=== PATIENT | female | born 1985 ===

== ENCOUNTER 2016-12-18 13:31 | Emergency (ER) | payer OTHER ==
[2016-12-18] MEDS ORDERED: Lidocaine 2% w Epi 1:100,000 Inj IJ ONE (13:56)
[2016-12-18] MEDS ORDERED: Povidone Iodine Topical 10% Sol ONE (13:58)
[2016-12-18] MEDS ORDERED: ceFAZolin 1 GM in Sodium Chloride 0.9% 100 ML IVPB STA (14:45)
[2016-12-18] MEDS ORDERED: TDAP Vaccine 0.5 mL Syr IM ONE (14:45)
--- NOTE | 2016-12-18 14:49 | RAD ---
PROCEDURE: Right tibia fibula 12/18/2016 HISTORY: FB COMPARISON: None available. TECHNIQUE: Frontal and lateral views obtained. FINDINGS: BONES: No fracture or destructive lesion. No cortical destructive changes. JOINT SPACES: Unremarkable. OTHER FINDINGS: No radiopaque foreign bodies are identified. Spell IMPRESSION: No evidence of acute displaced fracture nor dislocation. No definitive radiopaque foreign bodies identified.
--- NOTE | 2016-12-18 14:53 | ED PDOC ---
HPI: General Adult Time Seen by Provider: 12/18/16 13:33 Chief Complaint (Nursing): Foreign Body Chief Complaint (Provider): foreign body History Per: Patient History/Exam Limitations: no limitations Onset/Duration Of Symptoms: Mins (prior to arrival ) Have you had recent travel within the past 21 days to any of the following countries: [place], [place], [place] or [place]?: No Current Symptoms Are (Timing): Still Present Additional Complaint(s): Lakeisha Dozier is a 31 year old female, with no previous medical history, who presents to the ED via EMS for the evaluation of a piece of wood implanted in her right leg. Patient reports she was pushing her kids in the stroller when the stroller hit a large piece of wood which and ricocheted and implanted into her right leg. Patient denies any numbness or tingling. PMD: none provided Past Medical History Reviewed: Historical Data, Nursing Documentation, Vital Signs Vital Signs: Last Vital Signs Temp 97.5 F L 12/18/16 17:00 Pulse 78 12/18/16 17:00 Resp 20 12/18/16 17:00 BP 120/78 12/18/16 17:00 Pulse Ox 99 12/18/16 16:51 - Medical History PMH: No Chronic Diseases - Surgical History Surgical History: No Surg Hx - Family History Family History: States: Unknown Family Hx - Home Medications Home Medications: Ambulatory Orders Medication Instructions Recorded Acetaminophen with Codeine 1 tab PO Q6H PRN #10 tab 12/18/16 [Tylenol with Codeine No. 3 300 mg-30 mg] Cephalexin [cephalexin] 500 mg PO QID #40 cap 12/18/16 Naproxen [Naprosyn] 500 mg PO BID PRN #20 tablet 12/18/16 - Allergies Allergies/Adverse Reactions: Allergies Allergy/AdvReac Type Severity Reaction Status Date / Time No Known Allergies Allergy Verified 12/18/16 13:33 Review of Systems ROS Statement: Except As Marked, All Systems Reviewed And Found Negative Musculoskeletal: Positive for: Leg Pain (right ) Physical Exam - Reviewed Nursing Documentation Reviewed: Yes Vital Signs Reviewed: Yes - Physical Exam Appears: Positive for: Non-toxic Head Exam: Positive for: ATRAUMATIC, NORMAL INSPECTION, NORMOCEPHALIC Skin: Positive for: Normal Color, Warm, DRY Neck: Positive for: Normal Cardiovascular/Chest: Positive for: Regular Rate, Rhythm Respiratory: Positive for: Normal Breath Sounds. Negative for: Respiratory Distress Pulses-Dorsalis Pedis (R): 2+ Extremity: Positive for: Capillary Refill (< 2 seconds), Deformity (2 feet long jagged piece of wood, protruding from pt's right lwoer extremity medial to her tibia; no active bleeding. ), Other (distal senses intact, pt able to move toes. ) Neurologic/Psych: Positive for: Alert, Oriented. Negative for: Motor/Sensory Deficits - ECG O2 Sat by Pulse Oximetry: 99 (RA) Pulse Ox Interpretation: Normal - Other Rad XR R tib-fib X-Ray: Read By Radiologist (No evidence of acute displaced fracture nor dislocation. No definitive radiopaque foreign bodies identified.) - Critical Care Total Time (In Min): 45 Documented Critical Care: Time excludes all time spent performint seperately billable procedures Medical Decision Making Medical Decision Making: Initial Impression: Foreign body Initial Plan: -- Wound care -- XR Right Tib/Fib -- Morphine -- Ancef -- TDAP Booster -- CT Right Leg 16:14 CT scan FINDINGS: No visulaized radiopaque/visualized foreign body. No significant/acute osseous, articular abnormalities. Cutaneous, contusion adjacent to the anterior aspect of the midshaft left tibia. IMPRESSION: No visulaized radiopaque/visualized foreign body. No acute osseous or articular abnormalities. Scribe Attestation: Documented by Noemy Frey, acting as a scribe for Noemy Johnson MD. Provider Scribe Attestation: All medical record entries made by the Scribe were at my direction and personally dictated by me. I have reviewed the chart and agree that the record accurately reflects my personal performance of the history, physical exam, medical decision making, and the department course for this patient. I have also personally directed, reviewed, and agree with the discharge instructions and disposition. Procedures - Laceration/Wound Repair Right Lower Extremity Medial to Tibia Wound's Depth, Shape: irregular Wound Explored: foreign body removed Irrigated w/ Saline (ccs): 1,000 Betadine Prep?: Yes Anesthesia: Lidocaine w/ Epi Wound Repaired With: Sutures Suture Size/Type: 5:0 (1 ), 4:0 (5) Number of Sutures: 6 Wound Complexity: Intermediate Sterile Dressing Applied?: Yes Progress: Foreign Body Removal: Lidocaine with 1% Epi used. 1 cm linear incision was made at entry point and foreign body was removed. Copiously irrigated site with normal saline and 6 sutures placed; five were 4:0 surgipro and one was 5:0 surigpro. Pt tolerated procedure well. Disposition - Clinical Impression Clinical Impression: Foreign body in right lower extremity - Disposition Disposition Time: 16:46 Condition: STABLE Additional Instructions: RETURN TO ED IN 48 HOURS FOR WOUND CHECK. Prescriptions: Acetaminophen with Codeine [Tylenol with Codeine No. 3 300 mg-30 mg] 1 tab PO Q6H PRN #10 tab PRN Reason: Pain, Severe (8-10) Cephalexin [cephalexin] 500 mg PO QID #40 cap Naproxen [Naprosyn] 500 mg PO BID PRN #20 tablet PRN Reason: Pain, Moderate (4-7) Instructions: Soft Tissue Foreign Body (ED)
--- NOTE | 2016-12-18 16:16 | CT ---
PROCEDURE: She CT in left lower extremity HISTORY: r/o FB COMPARISON: December 18, 2016. Plain film radiographs 13:53 TECHNIQUE: 2.5 mm axial acquisition and display. Coronal and sagittal reconstructions. Dose report (mGy-cm): FINDINGS: No visulaized radiopaque/visualized foreign body. No significant/acute osseous, articular abnormalities. Cutaneous, contusion adjacent to the anterior aspect of the midshaft left tibia. IMPRESSION: No visulaized radiopaque/visualized foreign body. No acute osseous or articular abnormalities.
[2016-12-18 16:24] VITALS: O2SAT 99
[2016-12-18 17:01] VITALS: BP 120/78; PULSE 78; RESP 20; TEMP 97.5
== END 2016-12-18 17:01 | disposition home or self-care (01) ==
LOC: H.ER 13:31
DX: S80.852A Superficial foreign body, left lower leg, initial encounter (principal); S81.811A Laceration without foreign body, right lower leg, initial encounter; W26.8XXA Contact with other sharp object(s), not elsewhere classified, initial encounter

== ENCOUNTER 2016-12-21 10:17 | Emergency (ER) | payer OTHER ==
[2016-12-21 10:31] VITALS: BP 135/66; PULSE 70; TEMP 97; BMI 24.7
[2016-12-21 10:52] VITALS: O2SAT 98
[2016-12-21] MEDS ORDERED: Hydrogen Peroxide 3% Soln (480ml) TP ONE (10:58)
--- NOTE | 2016-12-21 11:09 | ED PDOC ---
HPI: Skin/Bite Injury Time Seen by Provider: 12/21/16 11:06 Chief Complaint (Nursing): Wound Check Chief Complaint (Provider): wound check History Per: Patient (31 y/o female here for wound check left leg. Beena had foreign body removed and sutures placed 12/18/2016. Is currently taking antibiotics without difficulty. No fevers/chills/increased pain.,) Past Medical History Reviewed: Historical Data, Nursing Documentation, Vital Signs Vital Signs: Last Vital Signs Temp 97 F L 12/21/16 10:30 Pulse 70 12/21/16 10:30 Resp BP 135/66 12/21/16 10:30 Pulse Ox 98 12/21/16 10:49 - Family History Family History: States: Unknown Family Hx - Home Medications Home Medications: Ambulatory Orders Medication Instructions Recorded Acetaminophen with Codeine 1 tab PO Q6H PRN #10 tab 12/18/16 [Tylenol with Codeine No. 3 300 mg-30 mg] Cephalexin [cephalexin] 500 mg PO QID #40 cap 12/18/16 Naproxen [Naprosyn] 500 mg PO BID PRN #20 tablet 12/18/16 - Allergies Allergies/Adverse Reactions: Allergies Allergy/AdvReac Type Severity Reaction Status Date / Time No Known Allergies Allergy Verified 12/18/16 13:33 Review of Systems ROS Statement: Except As Marked, All Systems Reviewed And Found Negative Physical Exam - Reviewed Nursing Documentation Reviewed: Yes Vital Signs Reviewed: Yes - Physical Exam Appears: Positive for: Well, Non-toxic, No Acute Distress Head Exam: Positive for: ATRAUMATIC, NORMAL INSPECTION, NORMOCEPHALIC Skin: Positive for: Warm. Negative for: Normal Color (Sutured wound healing well. No surrounding erythema noted.) Eye Exam: Positive for: EOMI, Normal appearance, PERRL ENT: Positive for: Normal ENT Inspection Neck: Positive for: Normal, Painless ROM Cardiovascular/Chest: Positive for: Regular Rate, Rhythm Respiratory: Positive for: CNT, Normal Breath Sounds Gastrointestinal/Abdominal: Positive for: Normal Exam, Bowel Sounds, Soft Back: Positive for: Normal Inspection Extremity: Positive for: Normal ROM Neurologic/Psych: Positive for: Alert, Oriented - ECG O2 Sat by Pulse Oximetry: 98 Disposition - Clinical Impression Clinical Impression: Encounter for wound re-check - Patient ED Disposition Is Patient to be Admitted: No - Disposition Disposition: Routine/Home Disposition Time: 11:10 Condition: FAIR Additional Instructions: RETURN IN 7 DAYS FOR REMOVAL OF SUTURES. Instructions: Care For Your Stitches (ED)
== END 2016-12-21 11:19 | disposition home or self-care (01) ==
LOC: H.ER 10:17
DX: Z48.00 Encounter for change or removal of nonsurgical wound dressing (principal)

== ENCOUNTER 2016-12-28 14:02 | Emergency (ER) | payer OTHER ==
[2016-12-28 14:02] VITALS: BMI 24.7
[2016-12-28 14:15] VITALS: BP 128/78; PULSE 80; RESP 18; TEMP 97.9; O2SAT 99
--- NOTE | 2016-12-28 14:33 | ED PDOC ---
HPI: Wound Care - HPI Time Seen by Provider: 12/28/16 14:15 Chief Complaint (Nursing): Suture/Staple Removal Chief Complaint (Provider): Suture removal - Right lower leg x 10 dyas Quality Of Symptoms: Painful Severity: Mild Pain Scale Rating Of: 1 Additional Complaint(s): Pt states she has been taking keflex 500mg 3x a day not 4 times a day. Denies drainage. No fever/chills. Past Medical History Reviewed: Historical Data, Nursing Documentation, Vital Signs Vital Signs: Last Vital Signs Temp 97.9 F 12/28/16 14:10 Pulse 80 12/28/16 14:10 Resp 18 12/28/16 14:10 BP 128/78 12/28/16 14:10 Pulse Ox 99 12/28/16 14:10 - Medical History PMH: No Chronic Diseases - Surgical History Surgical History: No Surg Hx - Family History Family History: States: Unknown Family Hx - Living Arrangements Living Arrangements: With Family - Social History Current smoker - smoking cessation education provided: No Alcohol: None Drugs: Denies - Immunization History Hx Tetanus Toxoid Vaccination: Yes - Home Medications Home Medications: Ambulatory Orders Medication Instructions Recorded Acetaminophen with Codeine 1 tab PO Q6H PRN #10 tab 12/18/16 [Tylenol with Codeine No. 3 300 mg-30 mg] Cephalexin [cephalexin] 500 mg PO QID #40 cap 12/18/16 Naproxen [Naprosyn] 500 mg PO BID PRN #20 tablet 12/18/16 - Allergies Allergies/Adverse Reactions: Allergies Allergy/AdvReac Type Severity Reaction Status Date / Time No Known Allergies Allergy Verified 12/18/16 13:33 Review of Systems ROS Statement: Except As Marked, All Systems Reviewed And Found Negative Skin: Positive for: Other Physical Exam - Reviewed Nursing Documentation Reviewed: Yes Vital Signs Reviewed: Yes - Physical Exam Appears: Positive for: Well, Non-toxic, No Acute Distress Head Exam: Positive for: ATRAUMATIC, NORMAL INSPECTION, NORMOCEPHALIC Skin: Positive for: Warm. Negative for: Normal Color (5 sutures intact, right anterior lower leg; approx 0.5cm of erythema consistant with localized reaction from sutures.) Eye Exam: Positive for: Normal appearance ENT: Positive for: Normal ENT Inspection Neck: Positive for: Normal, Painless ROM Respiratory: Negative for: Accessory Muscle Use, Respiratory Distress Back: Positive for: Normal Inspection Extremity: Positive for: Normal ROM Neurologic/Psych: Positive for: Alert, Oriented - ECG O2 Sat by Pulse Oximetry: 99 Medical Decision Making Medical Decision Makin sutures removed with #11 blade and suture removal kit. Well-tolerated. Disposition - Clinical Impression Clinical Impression: Removal of suture - Patient ED Disposition Is Patient to be Admitted: No Counseled Patient/Family Regarding: Diagnosis, Need For Followup - Disposition Disposition: Routine/Home Disposition Time: 14:31 Condition: GOOD Instructions: Stitches Removal (ED)
== END 2016-12-28 15:09 | disposition home or self-care (01) ==
LOC: H.ER 14:02
DX: Z48.02 Encounter for removal of sutures (principal)